=== PATIENT | male | born 1995 | race Caucasian/White ===

== ENCOUNTER 2017-12-30 16:32 | Emergency (ER) | payer MEDICAID ==
[~2017-12-30] VITALS: Ht 177.8 cm; Wt 72.6 kg
[2017-12-30] MEDS ORDERED: ZYPREXA7.5 MG ORAL (16:35)
[2017-12-30] MEDS ORDERED: SEROQUEL50 MG ORAL (16:35)
[2017-12-30] MEDS ORDERED: LITHIUM8 MEQ/5 M1 PO (16:35)
[2017-12-30] MEDS ORDERED: LEXAPRO10 MG ORAL (16:35)
--- NOTE | 2017-12-30 16:53 | Emergency Room Report ---
History of Present Illness General Chief Complaint: General Complaint Source: EMS Present Illness HPI 22yo male patient presents to ER complaining of hearing voices. Patient was previously seen and discharged by [facility] earlier today with rx for Zyprexa. Patient states voices are telling him they will hurt him. Patient denies thoughts of hurting himself or anyone else. Reports voices are stuffing "sticky buns" in his body. Patient is a poor historian. Patient denies acute pain, denies SOB, chest pain. Allergies: Uncoded Allergies: SULFA (Allergy, Unknown, 12/30/17) Patient History Past Medical History: see triage record Reviewed Nursing Documentation: PMH: Agreed, PSxH: Agreed Nursing Documentation-PMH History Of Psychiatric Problem: Yes Review of Systems All Other Systems: negative except mentioned in HPI Physical Exam Vital Signs Date Time Temp Pulse Resp B/P (MAP) Pulse Ox O2 Delivery O2 Flow Rate FiO2 12/30/17 16:15 98.2 98 18 113/73 98 Room Air 98.2 Sp02 EP Interpretation: reviewed, normal General Appearance: well appearing, no apparent distress, alert, GCS 15, non- toxic Head: normocephalic, atraumatic Eyes: bilateral eye normal inspection, bilateral eye PERRL, bilateral eye EOMI ENT: hearing grossly normal, normal pharynx, normal voice, TMs + canals normal , uvula midline, moist mucus membranes Neck: normal inspection, full range of motion, no bony tend Respiratory: normal inspection, lungs clear, normal breath sounds, no rhonchi, no accessory muscle use, no wheezing, speaking full sentences Cardiovascular #1: regular rate, rhythm, no gallop, no murmur, no rub Gastrointestinal: normal bowel sounds, non tender, soft, non-distended, no guarding, no rebound Genitourinary: no CVA tenderness Musculoskeletal: back normal, digits/nails normal, gait/station normal, normal range of motion, no calf tenderness Neurologic: alert, oriented x3, responsive, motor strength/tone normal, normal gait Psychiatric: other Skin: normal color, no rash, warm/dry Lymphatic: no adenopathy Medical Decision Making PA Attestation Dr. Crum is my supervising Physician whom patient management has been discussed with. Diagnostic Impression: Primary Impression: Auditory hallucinations ER Course Pt. presents to the ED c/o auditory hallucinations. Ddx considered but are not limited to anxiety, depression, schizophrenia. Denies suicidal and homicidal ideation. Do not believe patient is a danger to himself. Vital signs: are WNL, pt. is afebrile PE normal. Ordered medication for patient. Patient denies using medication prescribed to him at [facility] earlier today. ED COURSE: Following administration of medication, patient states they are feeling better, less anxious. Patient laughing and smiling in bed. Patient requesting sandwich and juice prior to discharge; patient provided with food. DISCHARGE: At this time pt is stable for d/c to home. Patient is resting comfortably, in no acute distress, nontoxic appearing, talking without difficulty. Patient instructed to take medications as instructed as prescribed from previous ER. Care plan and follow-up instructions provided. Patient instructed to follow-up with primary care provider in 3 - 5 days. Patient provided with contact information for mental health urgent care. Patient instructed to followup with mental health provider for further treatment and diagnosis. Patient questions asked and answered. Patient reports understanding and agreement to treatment plan. ER precautions given. Patient instructed to return to ER immediately for any new or worsening of symptoms including but not limited to increasing SOB, persistent fever. Last Vital Signs Date Time Temp Pulse Resp B/P (MAP) Pulse Ox O2 Delivery O2 Flow Rate FiO2 12/30/17 16:15 98.2 98 18 113/73 98 Room Air 98.2 Disposition: HOME, SELF-CARE Condition: Stable Patient Instructions: Schizophrenia Additional Instructions: Followup with primary care provider in 3 -5 days. Followup with psychiatrist. Provided with contact information for mental health urgent care. Take Zyprexa as directed from pervious ER. Patient questions asked and answered. ER precautions given, patient instructed to return to ER immediately for any new or worsening of symptoms. Jhony Rey Dec 30, 2017 16:53
[2017-12-30 18:22] VITALS: BP 145/61
== END 2017-12-30 19:20 | disposition home or self-care (01) ==
LOC: EDBD 16:32 → EMR 17:00
DX: R44.0 Auditory hallucinations (principal); Z88.2 Allergy status to sulfonamides
CPT/HCPCS: 99285

== ENCOUNTER 2017-12-30 20:29 | Emergency (ER) | payer MEDICAID ==
[~2017-12-30] VITALS: Ht 177.8 cm; Wt 72.6 kg
[~2017-12-30 20:29] MED LIST: LEXAPRO10 MG ORAL; LITHIUM8 MEQ/5 M1 PO; SEROQUEL50 MG ORAL; ZYPREXA7.5 MG ORAL
--- NOTE | 2017-12-30 21:34 | Emergency Room Report ---
History of Present Illness General Chief Complaint: Behavioral Complaint Source: Patient Present Illness HPI Is a 22-year-old male who has a history of schizophrenia. Not taking his psychiatric medication. Also history of methamphetamine abuse. He was here earlier complaining of chest pain. He was laughing and playful and was discharged. He was also discharged recently from another hospital with a prescription for Zyprexa. When he left ear he called 911 and said that his hearing voices. Police brought him back in and place him on a 150 because his hearing voices. Is no change from his previous episodes. He said the voice is causing and sharp pain in his body. No suicidal thoughts or homicidal thought. He does have a history of previous suicidal attempt. Recent psychiatric admission. Patient does not remember where or when. Allergies: Uncoded Allergies: SULFA (Allergy, Unknown, 12/30/17) Patient History Past Medical History: see triage record, old chart reviewed Past Surgical History: other Family History: none Social History: tobacco use, drug use Immunizations: other Reviewed Nursing Documentation: PMH: Agreed, PSxH: Agreed Nursing Documentation-PMH History Of Psychiatric Problem: Yes - schizophrenia Review of Systems ENT: Denies: sore throat Cardiovascular: Denies: chest pain, palpitations Gastrointestinal/Abdominal: Denies: nausea, vomiting, diarrhea Musculoskeletal: Denies: back problems Skin: Denies: rash Psychiatric: Reports: hallucinations Neurological: Denies: MC, seizures All Other Systems: negative except mentioned in HPI Physical Exam Vital Signs Date Time Temp Pulse Resp B/P (MAP) Pulse Ox O2 Delivery O2 Flow Rate FiO2 12/30/17 20:30 97.9 94 20 134/70 97 Room Air 97.9 vitals normal Sp02 EP Interpretation: reviewed, normal General Appearance: alert/responsive, no apparent distress, non-toxic Head: normocephalic, atraumatic Eyes: PERRL, EOMI ENT: oropharynx normal Neck: supple/symm/no masses Respiratory: effort normal, no rhonchi, no wheezing Cardiovascular: no murmur, gallop, rub Gastrointestinal: non-tender, no mass, non-distended, no rebound/guarding, normal bowel sounds Musculoskeletal: gait & station normal Neurologic: oriented x3, sensory intact, motor strength/tone normal Skin: no rash, normal palpation Medical Decision Making Diagnostic Impression: Primary Impression: Acute psychosis Additional Impression: Methamphetamine abuse ER Course Patient with psychosis. He is calm. Since he has a 5150 hold by police, and psychiatric workup and get psychiatric evaluation. He is medically clear from my standpoint. Lab Results Impression labs normal Last Vital Signs Date Time Temp Pulse Resp B/P (MAP) Pulse Ox O2 Delivery O2 Flow Rate FiO2 12/30/17 20:30 97.9 94 20 134/70 97 Room Air 97.9 Status: unchanged Disposition: XFER TO PSYCH HOSP/UNIT Condition: Stable SANDIE DAVIS M.D. Dec 30, 2017 21:34
[2017-12-30 22:02] LABS: BASOPHILS % (AUTO) 1.5 % (0.0-2.0); HEMATOCRIT 38.8 % (42.0-52.0); HEMOGLOBIN 13.3 G/DL (14.2-18.0); LYMPHOCYTES % (AUTO) 42.6 % (20.0-45.0); MEAN CORPUSCULAR VOLUME 90 FL (80-99); MONOCYTES % (AUTO) 10.5 % (1.0-10.0); NEUTROPHILS % (AUTO) 39.4 % (45.0-75.0); PLATELET COUNT 241 K/UL (150-450); RED BLOOD COUNT 4.32 M/UL (4.70-6.10); RED CELL DISTRIBUTION WIDTH 12.2 % (11.6-14.8); WHITE BLOOD COUNT 8.5 K/UL (4.8-10.8)
[2017-12-30 22:05] LABS: ALANINE AMINOTRANSFERASE 112 U/L (12-78); ALBUMIN 3.4 G/DL (3.4-5.0); ALBUMIN/GLOBULIN RATIO 0.9 (1.0-2.7); ALKALINE PHOSPHATASE 111 U/L (46-116); ANION GAP 7 mmol/L (5-15); ASPARTATE AMINO TRANSFERASE 42 U/L (15-37); BILIRUBIN,TOTAL 0.8 MG/DL (0.2-1.0); BLOOD UREA NITROGEN 23 mg/dL (7-18); CALCIUM 8.8 MG/DL (8.5-10.1); CARBON DIOXIDE 29 MMOL/L (21-32); CHLORIDE 101 MMOL/L (98-107); CREATININE 0.8 MG/DL (0.55-1.30); POTASSIUM 3.7 MMOL/L (3.5-5.1); SODIUM 137 MMOL/L (136-145)
[2017-12-30 23:16] VITALS: BP 119/82
[2017-12-31 02:43] VITALS: BP 121/57
[2017-12-31 06:46] VITALS: BP 104/64
[2017-12-31 07:55] VITALS: BP 108/65
[2017-12-31 10:39] VITALS: BP 112/68
--- NOTE | 2017-12-31 17:30 | Consultation ---
DATE OF CONSULTATION: 12/31/2017 CONSULTING PHYSICIAN: Antwan Colin M.D. HISTORY OF PRESENT ILLNESS: The patient was seen in the ER. This is a 22-year-old male with a history of schizophrenia, chronic paranoid type, who came to the hospital complaining of hearing voices. His system was positive for methamphetamine. The patient was discharged after he was being inappropriately laughing and playful in the emergency room. He was discharged recently from another hospital, I believe [place] or [place], with a prescription for Zyprexa. He called 911. The police came, placed him on a 5150 for danger to self. During the evaluation, he stated that he has been hearing voices telling him bad things and he wants to hurt himself. His affect was not consistent with his presentation, and he was unable to elaborate on the voices that he was hearing. He was adamant on speaking about auditory hallucination to other staff. He did not express any suicidal ideation nor homicidal ideation. When I was asking him a question in regards to his mental condition or recent hospitalization, he believes that it was an irrelevant and in the middle of the evaluation, he stated that he would like to be discharged. He was not open to be on any medication nor psychiatric referral. PAST PSYCHIATRIC HISTORY: He stated that he had other psychiatric hospitalization, however, he would not open up in regards to that. PAST MEDICAL HISTORY: Significant for schizophrenia, chronic paranoid type. Otherwise, he is healthy. ALLERGIES: Sulfa. SUBSTANCE ABUSE HISTORY: Positive for history of drug use including methamphetamine and marijuana. However, he remained uncooperative. MENTAL STATUS EXAMINATION: The patient was well-developed and well-nourished male, stated age. Mood was neutral. Affect was full range, congruent with mood. Thought process was linear. Thought content, no suicidal or homicidal ideations were noted. No auditory or visual hallucinations. No persecutory delusions. Cognition was intact. Insight and judgment was fair. ASSESSMENT: [place] I Schizophrenia, chronic paranoid type by history, and amphetamine abuse. [place] II Deferred. [place] III As above. [place] IV Low. [place] V Global assessment of functioning is 50. PLAN: 1. The patient was discharged. We will give the psych referral even though the patient is reluctant or adamant against going through outpatient program. 2. We will discontinue the 5150. The patient is not an imminent danger to self or others and does not meet the criteria for inpatient level of care. Antwan Colin M.D. DR: BALWINDER JOB#: [id number] CC:
== END 2017-12-31 10:43 | disposition home or self-care (01) ==
LOC: EMR 21:20
DX: F20.0 Paranoid schizophrenia (principal); F15.10 Other stimulant abuse, uncomplicated; Z88.2 Allergy status to sulfonamides
CPT/HCPCS: 36415; 80053; 80307; 80329; 85025; 99285

== ENCOUNTER 2018-01-21 15:01 | Emergency (ER) | payer MEDICAID ==
[~2018-01-21] VITALS: Ht 177.8 cm; Wt 81.6 kg
--- NOTE | 2018-01-21 16:19 | Emergency Room Report ---
History of Present Illness General Chief Complaint: Behavioral Complaint Source: EMS Present Illness HPI 22-year-old male presents to the emergency department complaining of auditory hallucinations. Patient states that he has had these hallucinations in the past. Patient reports that he is hearing voices that are telling him to do disrespectful things and are constantly "poking him " patient also reports history of drug use he describes taking "white" without getting further detail he shows interest in several living. Patient reports psychiatric history and is supposed to be taking Seroquel and also Zyprexa however he reports noncompliance of medications. He denies SI or HI. Denies open wounds, pain, chest pain, shortness of breath, or difficulty breathing. Allergies: Coded Allergies: SULFA (SULFONAMIDE ANTIBIOTICS) (Unverified Allergy, Unknown, 01/21/18) Uncoded Allergies: SULFA (Allergy, Unknown, 12/30/17) Patient History Past Medical History: psych hx - paranoid schizophrenia Past Surgical History: none Pertinent Family History: none Reviewed Nursing Documentation: PMH: Agreed, PSxH: Agreed Nursing Documentation-PMH Past Medical History: No History, Except For History Of Psychiatric Problem: Yes Review of Systems All Other Systems: negative except mentioned in HPI Physical Exam Vital Signs Date Time Temp Pulse Resp B/P (MAP) Pulse Ox O2 Delivery O2 Flow Rate FiO2 01/21/18 14:56 98.1 100 18 150/73 97 Room Air 98.1 Sp02 EP Interpretation: reviewed, normal General Appearance: no apparent distress, alert, GCS 15, non-toxic Head: normocephalic, atraumatic Eyes: bilateral eye normal inspection, bilateral eye PERRL ENT: hearing grossly normal, normal voice Neck: full range of motion Respiratory: chest non-tender, lungs clear, normal breath sounds, speaking full sentences Cardiovascular #1: regular rate, rhythm Gastrointestinal: normal bowel sounds, non tender, soft Musculoskeletal: back normal, gait/station normal, normal range of motion, non- tender Neurologic: alert, oriented x3, responsive, motor strength/tone normal, sensory intact, speech normal, grossly normal Psychiatric: other - Pt. has auditory halllucinations with some paranoia. hyperactive/ anxious affect. cooperative, linear though process. Skin: normal color, no rash, warm/dry, well hydrated Medical Decision Making PA Attestation Dr. Johnson is my supervising Physician whom patient management has been discussed with. Diagnostic Impression: Primary Impression: Behavioral disorder ER Course 22-year-old male presents to the emergency department complaining of auditory hallucinations. Patient states that he has had these hallucinations in the past. Patient reports that he is hearing voices that are telling him to do disrespectful things and are constantly "poking him " patient also reports history of drug use he describes taking "white" without getting further detail he shows interest in several living. Patient reports psychiatric history and is supposed to be taking Seroquel and also Zyprexa however he reports noncompliance of medications. He denies SI or HI. Denies open wounds, pain, chest pain, shortness of breath, or difficulty breathing. Pt is hyperactive with restless affect. - Cooperative and follows directions. Ddx considered but are not limited to OD, SI/HI, psychosis, UTI, intoxication Vital signs: are WNL, pt. is afebrile H&PE are most consistent with behavioral/mental health issue ORDERS: -CBC, CMP: mildly elevated LFT's, potassium 3.2, elevated BUN. -UA: negative for infection see results attached. -UDS: Positive for Amphetamines -Serum ETOH: 3 -Salicylates and Acetaminophen - no acute intoxication. ED INTERVENTIONS: - 20meq KCl PO - 2mg Risperdal -consult with Dr. Colin, recommended risperdal 2 mg DISPOSITION: medically cleared, will await response to medication and psych eval. Labs Test 01/21/18 16:30 01/21/18 16:38 Urine Color Yellow Urine Appearance Clear Urine pH 6.5 (4.5-8.0) Urine Specific [place] 1.015 (1.005-1.035) Urine Protein 1+ (NEGATIVE) Urine Glucose (UA) Negative (NEGATIVE) Urine Ketones 1+ (NEGATIVE) Urine Occult Blood Negative (NEGATIVE) Urine Nitrite Negative (NEGATIVE) Urine Bilirubin Negative (NEGATIVE) Urine Urobilinogen Normal MG/DL (0.0-1.0) Urine Leukocyte Esterase 1+ (NEGATIVE) Urine RBC 0-2 /HPF (0 - 0) Urine WBC 2-4 /HPF (0 - 0) Urine Squamous Epithelial Cells None /LPF (NONE/OCC) Urine Bacteria Few /HPF (NONE) Urine Opiates Screen Negative (NEGATIVE) Urine Barbiturates Screen Negative (NEGATIVE) Phencyclidine (PCP) Screen Negative (NEGATIVE) Urine Amphetamines Screen Positive (NEGATIVE) Urine Benzodiazepines Screen Negative (NEGATIVE) Urine Cocaine Screen Negative (NEGATIVE) Urine Marijuana (THC) Screen Negative (NEGATIVE) White Blood Count 10.7 K/UL (4.8-10.8) Red Blood Count 4.53 M/UL (4.70-6.10) Hemoglobin 14.4 G/DL (14.2-18.0) Hematocrit 40.2 % (42.0-52.0) Mean Corpuscular Volume 89 FL (80-99) Mean Corpuscular Hemoglobin 31.8 PG (27.0-31.0) Mean Corpuscular Hemoglobin Concent 35.9 G/DL (32.0-36.0) Red Cell Distribution Width 11.8 % (11.6-14.8) Platelet Count 284 K/UL (150-450) Mean Platelet Volume 7.8 FL (6.5-10.1) Neutrophils (%) (Auto) 56.4 % (45.0-75.0) Lymphocytes (%) (Auto) 29.3 % (20.0-45.0) Monocytes (%) (Auto) 10.6 % (1.0-10.0) Eosinophils (%) (Auto) 1.5 % (0.0-3.0) Basophils (%) (Auto) 2.2 % (0.0-2.0) Sodium Level 137 MMOL/L (136-145) Potassium Level 3.2 MMOL/L (3.5-5.1) Chloride Level 99 MMOL/L (98-107) Carbon Dioxide Level 28 MMOL/L (21-32) Anion Gap 10 mmol/L (5-15) Blood Urea Nitrogen 28 mg/dL (7-18) Creatinine 0.9 MG/DL (0.55-1.30) Estimat Glomerular Filtration Rate > 60 mL/min (>60) Glucose Level 78 MG/DL (74-106) Calcium Level 9.6 MG/DL (8.5-10.1) Total Bilirubin 1.5 MG/DL (0.2-1.0) Direct Bilirubin 0.2 MG/DL (0.0-0.3) Aspartate Amino Transf (AST/SGOT) 76 U/L (15-37) Alanine Aminotransferase (ALT/SGPT) 96 U/L (12-78) Alkaline Phosphatase 81 U/L (46-116) Total Protein 8.6 G/DL (6.4-8.2) Albumin 4.3 G/DL (3.4-5.0) Globulin 4.3 g/dL Albumin/Globulin Ratio 1.0 (1.0-2.7) Salicylates Level 0.3 ug/mL (2.8-20) Acetaminophen Level < 2 MCG/ML (10-30) Serum Alcohol 3 mg/dL Last Vital Signs Date Time Temp Pulse Resp B/P (MAP) Pulse Ox O2 Delivery O2 Flow Rate FiO2 01/21/18 14:56 98.1 100 18 150/73 97 Room Air 98.1 Signed Out To: Dr. Crum Physician Consult: Dr. Colin ( psych) Reina Phipps Jan 21, 2018 16:18
[2018-01-21 17:01] LABS: APPEARANCE,URINE CLEAR; BILIRUBIN, URINE NEGATIVE (NEGATIVE); GLUCOSE, URINE (UA) NEGATIVE (NEGATIVE); KETONES,URINE 1+ (NEGATIVE); LEUKOCYTE ESTERASE ,URINE 1+ (NEGATIVE); NITRITE,URINE NEGATIVE (NEGATIVE); PH,URINE 6.5 (4.5-8.0); PROTEIN,URINE 1+ (NEGATIVE); UROBILINOGEN,URINE NORMAL MG/DL (0.0-1.0)
[2018-01-21 17:13] LABS: COLOR,URINE YELLOW
[2018-01-21 17:16] LABS: BASOPHILS % (AUTO) 2.2 % (0.0-2.0); EOSINOPHILS % (AUTO) 1.5 % (0.0-3.0); HEMATOCRIT 40.2 % (42.0-52.0); HEMOGLOBIN 14.4 G/DL (14.2-18.0); LYMPHOCYTES % (AUTO) 29.3 % (20.0-45.0); MEAN CORPUSCULAR VOLUME 89 FL (80-99); MONOCYTES % (AUTO) 10.6 % (1.0-10.0); NEUTROPHILS % (AUTO) 56.4 % (45.0-75.0); PLATELET COUNT 284 K/UL (150-450); RED BLOOD COUNT 4.53 M/UL (4.70-6.10); RED CELL DISTRIBUTION WIDTH 11.8 % (11.6-14.8); WHITE BLOOD COUNT 10.7 K/UL (4.8-10.8)
[2018-01-21 17:19] LABS: ANION GAP 10 mmol/L (5-15); BLOOD UREA NITROGEN 28 mg/dL (7-18); CALCIUM 9.6 MG/DL (8.5-10.1); CARBON DIOXIDE 28 MMOL/L (21-32); CHLORIDE 99 MMOL/L (98-107); CREATININE 0.9 MG/DL (0.55-1.30); POTASSIUM 3.2 MMOL/L (3.5-5.1); SODIUM 137 MMOL/L (136-145)
[2018-01-21 17:31] LABS: ALANINE AMINOTRANSFERASE 96 U/L (12-78); ALBUMIN 4.3 G/DL (3.4-5.0); ALKALINE PHOSPHATASE 81 U/L (46-116); ASPARTATE AMINO TRANSFERASE 76 U/L (15-37); BILIRUBIN,TOTAL 1.5 MG/DL (0.2-1.0)
[2018-01-21 17:34] LABS: BILIRUBIN,DIRECT 0.2 MG/DL (0.0-0.3)
[2018-01-21 18:36] VITALS: BP 150/73
[2018-01-21 22:32] VITALS: BP 121/72
[2018-01-22 06:22] VITALS: BP 113/65
[2018-01-22 11:05] VITALS: BP 113/65
--- NOTE | 2018-01-22 23:01 | Consultation ---
DATE OF CONSULTATION: 01/22/2018 HISTORY OF PRESENT ILLNESS: The patient is a 22-year-old male with unknown psychiatric history who was admitted to the emergency room at [facility] with chief complaint of having suicidal thoughts. His toxicology came back positive for methamphetamine. During evaluation, he was somewhat uncooperative. He perseverated. He needs to go to a psychiatric unit as he has thought of cutting himself. He was seen at a psychiatric hospital and was given psychotropic medication; however, he has been noncompliant with medication and has poor insight and judgment into his drug use. He is not motivated to self and he states that he does not have any problem with meth use. He also stated that he has no money left for the and he is homeless. The patient is denying any auditory or visual hallucinations. No delusions. PAST PSYCHIATRIC HISTORY: He has several psychiatric hospitalizations with similar situation, noncompliance with medication. He does not give me list of his medications. PAST MEDICAL HISTORY: None. ALLERGIES: No known drug allergies. SUBSTANCE ABUSE HISTORY: Significant for methamphetamine and marijuana. MENTAL STATUS EXAMINATION: The patient is alert and oriented times self, place, and situation he is in. Mood is neutral. Affect is constricted, congruent with mood. Thought process is linear and goal oriented. Thought content, he has suicidal ideation, but he does not elaborate nor is he tell me what his plan would be. Insight and judgment is poor. ASSESSMENT: AXIS I Methamphetamine abuse. Psychotic disorder by history. AXIS II Deferred. AXIS III As above. AXIS IV Moderate. AXIS V Global assessment of functioning is 50. PLAN: 1. The patient will be discharged. He will be provided housing referral as he stated that he will not be suicidal as we provide him housing. 2. The patient is not an imminent danger to self or others. 3. He refused prescription medications for antipsychotics. 4. The case was discussed with the ER doctor and the staff. Antwan Colin M.D. DR: TRUDY JOB#: [id number] CC:
== END 2018-01-22 11:09 | disposition home or self-care (01) ==
LOC: EDBD 15:01 → EMR 17:30
DX: F91.9 Conduct disorder, unspecified (principal); Z88.2 Allergy status to sulfonamides; Z91.19 Patient's noncompliance with other medical treatment and regimen; F15.10 Other stimulant abuse, uncomplicated
CPT/HCPCS: 36415; 80053; 80307; 80329; 81003; 82248; 85025; 99284; J8499

== ENCOUNTER 2018-09-08 17:36 | Emergency (ER) | payer MEDICAID ==
[~2018-09-08] VITALS: Ht 177.8 cm; Wt 68.0 kg
[2018-09-08 17:45] VITALS: BP 147/91
--- NOTE | 2018-09-08 17:46 | Emergency Room Report ---
History of Present Illness General Chief Complaint: Behavioral Complaint Present Illness HPI 23-year-old male patient presents the ER brought in by ambulance complaining of hearing voices. Patient reports a history of schizophrenia, states that is currently taking Lexapro, hydroxyzine, Seroquel. Denies drinking or drug use. Denies suicidal or homicidal ideation. Reports he wants "the voices to go away ". Reports he would like to be sent to [facility] urgent care. Denies acute symptoms at this time. Denies fever, chest pain, shortness of breath, abdominal pain. States does not need refill of medication. (Jhony Rey P.AAcacia) Allergies: Coded Allergies: SULFA (SULFONAMIDE ANTIBIOTICS) (Unverified Allergy, Unknown, 01/21/18) UNABLE TO ASSESS (Unverified , 09/08/18) Uncoded Allergies: SULFA (Allergy, Unknown, 12/30/17) Patient History Past Medical History: see triage record Reviewed Nursing Documentation: PMH: Agreed; PSxH: Agreed (Jhony Rey) Nursing Documentation-PMH Past Medical History: No History, Except For History Of Psychiatric Problem: Yes (Jhony Rey P.AAcacia) Review of Systems All Other Systems: negative except mentioned in HPI (Jhony Rey P.AAcacia) Physical Exam Vital Signs Date Time Temp Pulse Resp B/P (MAP) Pulse Ox O2 Delivery O2 Flow Rate FiO2 09/08/18 17:30 98.4 116 20 147/91 98 Room Air Sp02 EP Interpretation: reviewed, normal General Appearance: well appearing, no apparent distress, alert, GCS 15, non- toxic Head: normocephalic, atraumatic Eyes: bilateral eye normal inspection, bilateral eye PERRL ENT: hearing grossly normal, normal pharynx, no angioedema, normal voice, uvula midline, moist mucus membranes Neck: full range of motion Respiratory: lungs clear, normal breath sounds, no rhonchi, no respiratory distress, no accessory muscle use, no wheezing, speaking full sentences Cardiovascular #1: regular rate, rhythm, no edema Musculoskeletal: back normal, digits/nails normal, gait/station normal, normal range of motion, non-tender Neurologic: alert, oriented x3, responsive, motor strength/tone normal, sensory intact Psychiatric: mood/affect normal, no suicidal/homicidal ideation Skin: no rash (Jhony Rey) Medical Decision Making PA Attestation Dr. Stanton is my supervising Physician whom patient management has been discussed with. (Jhony Rey) Diagnostic Impression: Primary Impression: Hearing voices Additional Impression: Hx of schizophrenia ER Course Pt. presents to the ED c/o hearing voices. Ddx considered but are not limited to anxiety, depression, drug use, alcohol use , behavioral disorder. Vital signs: are WNL, pt. is afebrile. pulse and blood pressure slightly elevated, patient denies chest pain or shortness of breath, does not require further workup for this time. Will continue to monitor. Ordered labs, urine drug screen, serum alcohol. ER COURSE: physical exam benign. patient previously seen in the ER for similar symptoms. patient requesting to be sent to [facility]. Patient denies suicidal or homicidal ideation. Patient is injured himself or others at this time. Does not believe patient requires workup and labs at this time, denies acute physical complaints. Had scada technician contact [facility], states she was told by them that they "did not want a report of patient" and to "send him over". Provide patient with transportation voucher to urgent care. ER precautions given. Patient stable for discharge to home. discuss patient care with Dr. Stanton, agrees with assessment and treatment plan. DISCHARGE: At this time pt is stable for d/c to home. Patient is resting comfortably, in no acute distress, nontoxic appearing, talking without difficulty. Patient to take medications as instructed Will provide with patient care instructions and any necessary prescriptions. Care plan and follow-up instructions provided. Patient instructed to follow-up with primary care provider in 3 - 5 days. Patient questions asked and answered. Patient reports understanding and agreement to treatment plan. ER precautions given. Patient instructed to return to ER immediately for any new or worsening of symptoms including but not limited to increasing SOB, persistent fever. - Please note that this Emergency Department Report was dictated using [employer] pick up man technology software, occasionally this can lead to erroneous entry secondary to interpretation by the dictation equipment. (Jhony Rey) ER Course I evaluated Mr. Mancuso. He has auditory hallucinations. He does not have suicidal or homicidal ideation. He is appropriate for discharge. He did request a taxi voucher [facility]. We provided transportation and taxi outpatient mental health facility. Currently he is not a harm to himself or others. appropriate for discharge. (Dilcia Stanton MD) Last Vital Signs Date Time Temp Pulse Resp B/P (MAP) Pulse Ox O2 Delivery O2 Flow Rate FiO2 09/08/18 17:30 98.4 116 20 147/91 98 Room Air (Jhony Rey) Disposition: HOME, SELF-CARE Condition: Stable Patient Instructions: Schizophrenia Additional Instructions: Followup with primary care provider in 3 -5 days. follow-up with mental health professional to discuss medication and hearing voices. Take medications as directed. Patient questions asked and answered. ER precautions given, patient instructed to return to ER immediately for any new or worsening of symptoms. Jhony Rye Sep 08, 2018 17:46 Dilcia Stanton MD Sep 08, 2018 22:11
[2018-09-08 18:50] VITALS: BP 138/84
== END 2018-09-08 18:55 | disposition home or self-care (01) ==
LOC: EDBD 17:36 → EMR 17:45
DX: R44.0 Auditory hallucinations (principal); F20.9 Schizophrenia, unspecified; Z88.2 Allergy status to sulfonamides
CPT/HCPCS: 99283

== ENCOUNTER 2018-09-20 02:02 | Emergency (ER) | payer MEDICAID ==
[~2018-09-20] VITALS: Ht 177.8 cm; Wt 68.0 kg
--- NOTE | 2018-09-20 02:14 | Emergency Room Report ---
History of Present Illness General Source: Patient (Alton Johnson MD) Present Illness HPI Patient is a 23-year-old male brought in by EMS after increased hallucinations. Patient was noted to have prior history of psychiatric disease. He reports taking Seroquel as well as Atarax and another medication. The patient reports having prior history of psychiatric disease. He reports hearing voices. (Alton Johnson MD) Allergies: Coded Allergies: SULFA (SULFONAMIDE ANTIBIOTICS) (Unverified Allergy, Unknown, 01/21/18) UNABLE TO ASSESS (Unverified , 09/08/18) Uncoded Allergies: SULFA (Allergy, Unknown, 12/30/17) Patient History Past Medical History: see triage record Reviewed Nursing Documentation: PMH: Agreed; PSxH: Agreed (Alton Johnson MD) Review of Systems All Other Systems: negative except mentioned in HPI (Alton Johnson MD) Physical Exam Sp02 EP Interpretation: reviewed, normal General Appearance: normal inspection, well appearing, no apparent distress, alert, GCS 15 Head: atraumatic ENT: normal ENT inspection, hearing grossly normal, normal voice Neck: normal inspection, full range of motion, supple, no bony tend Respiratory: normal inspection, lungs clear, normal breath sounds, no respiratory distress, no retraction, no wheezing Cardiovascular #1: regular rate, rhythm, no edema Gastrointestinal: normal inspection, normal bowel sounds, non tender, soft, no guarding, no hernia Genitourinary: no CVA tenderness Musculoskeletal: normal inspection, back normal, normal range of motion Neurologic: normal inspection, alert, oriented x3, responsive, 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 Skin: normal inspection, normal color, no rash, other - well healed laceration to left forearm (Alton Johnson MD) Medical Decision Making Diagnostic Impression: Primary Impression: Psychosis Additional Impression: Substance abuse ER Course The patient presented for increased auditory hallucinations. Differential diagnoses include substance abuse, psychosis, bipolar disorder, depression, malingering Because of complexity of patient's case laboratory testing and imaging studies were ordered. The laboratory studies are unremarkable. Patient is medically Seroquel. Urine drug screen was positive for amphetamine.The patient was noted to have multiple well-healed laceration to left upper extremity. Labs Test 09/20/18 02:50 White Blood Count 6.7 K/UL (4.8-10.8) Red Blood Count 5.12 M/UL (4.70-6.10) Hemoglobin 15.0 G/DL (14.2-18.0) Hematocrit 44.1 % (42.0-52.0) Mean Corpuscular Volume 86 FL (80-99) Mean Corpuscular Hemoglobin 29.3 PG (27.0-31.0) Mean Corpuscular Hemoglobin Concent 34.1 G/DL (32.0-36.0) Red Cell Distribution Width 11.5 % (11.6-14.8) Platelet Count 262 K/UL (150-450) Mean Platelet Volume 7.3 FL (6.5-10.1) Neutrophils (%) (Auto) 43.4 % (45.0-75.0) Lymphocytes (%) (Auto) 42.3 % (20.0-45.0) Monocytes (%) (Auto) 8.7 % (1.0-10.0) Eosinophils (%) (Auto) 4.0 % (0.0-3.0) Basophils (%) (Auto) 1.7 % (0.0-2.0) Sodium Level 137 MMOL/L (136-145) Potassium Level 3.9 MMOL/L (3.5-5.1) Chloride Level 100 MMOL/L (98-107) Carbon Dioxide Level 29 MMOL/L (21-32) Anion Gap 8 mmol/L (5-15) Blood Urea Nitrogen 21 mg/dL (7-18) Creatinine 0.9 MG/DL (0.55-1.30) Estimat Glomerular Filtration Rate > 60 mL/min (>60) Glucose Level 86 MG/DL (74-106) Calcium Level 9.9 MG/DL (8.5-10.1) Total Bilirubin 1.8 MG/DL (0.2-1.0) Direct Bilirubin 0.3 MG/DL (0.0-0.3) Aspartate Amino Transf (AST/SGOT) 83 U/L (15-37) Alanine Aminotransferase (ALT/SGPT) 170 U/L (12-78) Alkaline Phosphatase 84 U/L (46-116) Total Protein 9.4 G/DL (6.4-8.2) Albumin 4.1 G/DL (3.4-5.0) Globulin 5.3 g/dL Albumin/Globulin Ratio 0.8 (1.0-2.7) Salicylates Level 1.9 ug/mL (2.8-20) Urine Opiates Screen Negative (NEGATIVE) Acetaminophen Level < 2 MCG/ML (10-30) Urine Barbiturates Screen Negative (NEGATIVE) Phencyclidine (PCP) Screen Negative (NEGATIVE) Urine Amphetamines Screen Positive (NEGATIVE) Urine Benzodiazepines Screen Negative (NEGATIVE) Urine Cocaine Screen Negative (NEGATIVE) Urine Marijuana (THC) Screen Negative (NEGATIVE) Serum Alcohol < 3 mg/dL (Alton Johnsno MD) ER Course patient is medically cleared. patient will be transferred for voluntary psychiatric placement (Savage Crum MD) EKG Diagnostic Results Rate: normal Rhythm: NSR ST Segments: no acute changes ASA given to the pt in ED: No (Savage Crum MD) Rhythm Strip Diag. Results EP Interpretation: yes Rhythm: NSR, no PVC's, no ectopy (Savage Crum MD) Status: unchanged (Alton Johnson MD) Status: improved (Savage Crum MD) Disposition: XFER TO PSYCH HOSP/UNIT Condition: Serious Alton Johnson MD Sep 20, 2018 02:14 Savage Crum MD Sep 20, 2018 09:27
[2018-09-20 02:15] VITALS: BP 134/86
[2018-09-20 03:19] LABS: BASOPHILS % (AUTO) 1.7 % (0.0-2.0); HEMATOCRIT 44.1 % (42.0-52.0); LYMPHOCYTES % (AUTO) 42.3 % (20.0-45.0); MEAN CORPUSCULAR VOLUME 86 FL (80-99); MONOCYTES % (AUTO) 8.7 % (1.0-10.0); NEUTROPHILS % (AUTO) 43.4 % (45.0-75.0); PLATELET COUNT 262 K/UL (150-450); RED BLOOD COUNT 5.12 M/UL (4.70-6.10); RED CELL DISTRIBUTION WIDTH 11.5 % (11.6-14.8); WHITE BLOOD COUNT 6.7 K/UL (4.8-10.8)
[2018-09-20 03:28] LABS: ANION GAP 8 mmol/L (5-15); BLOOD UREA NITROGEN 21 mg/dL (7-18); CALCIUM 9.9 MG/DL (8.5-10.1); CARBON DIOXIDE 29 MMOL/L (21-32); CHLORIDE 100 MMOL/L (98-107); CREATININE 0.9 MG/DL (0.55-1.30); POTASSIUM 3.9 MMOL/L (3.5-5.1); SODIUM 137 MMOL/L (136-145)
[2018-09-20 03:38] LABS: ALANINE AMINOTRANSFERASE 170 U/L (12-78); ALBUMIN 4.1 G/DL (3.4-5.0); ALBUMIN/GLOBULIN RATIO 0.8 (1.0-2.7); ALKALINE PHOSPHATASE 84 U/L (46-116); ASPARTATE AMINO TRANSFERASE 83 U/L (15-37); BILIRUBIN,DIRECT 0.3 MG/DL (0.0-0.3); BILIRUBIN,TOTAL 1.8 MG/DL (0.2-1.0)
[2018-09-20 07:30] VITALS: BP 96/50
[2018-09-20] MEDS ORDERED: LORazepam 1mg tab ORAL ONE (08:15)
[2018-09-20 10:19] VITALS: BP 100/55
[2018-09-20 10:48] VITALS: BP 100/55
--- NOTE | 2018-09-23 16:55 | Cardiology Report ---
APPROVED REPORT EKG Measurement Heart [id number] Sinus rhythm with marked sinus arrhythmia Minimal voltage criteria for LVH, may be normal variant Borderline ECG
== END 2018-09-20 10:54 ==
LOC: EDBD 02:02 → EMR 02:20
DX: F29 Unspecified psychosis not due to a substance or known physiological condition (principal); F19.10 Other psychoactive substance abuse, uncomplicated; Z88.2 Allergy status to sulfonamides
CPT/HCPCS: 36415; 80053; 80307; 80329; 82248; 85025; 93005; 99285

== ENCOUNTER 2019-12-09 01:20 | Emergency (ER) | payer MEDICAID, OTHER ==
[~2019-12-09] VITALS: Ht 180.3 cm; Wt 68.0 kg
[2019-12-09 01:45] VITALS: BP 136/79
--- NOTE | 2019-12-09 01:45 | NUR ---
ED Nurse Note: Pt walked into ED after being DC approx 30 min prior under different name (Geremias Antonio) for c/o auditory hallucinations. Pt requesting to sleep. Pt is aaox4, no respiratory or cardiac distress noted.
--- NOTE | 2019-12-09 02:01 | Emergency Room Report ---
History of Present Illness General Chief Complaint: Behavioral Complaint Source: Patient Present Illness HPI Is a 24-year-old male with history of schizophrenia. He was just here earlier under different name. He came initially complaining of hearing voices and wanting Seroquel. After he slept for couple hours he said he to leave. After leaving for 15 minutes he checked back then under this name. He said he is hearing voices again and want something to eat and drink. He denies suicidal thoughts homicidal thought. He denies any other complaint. Allergies: Coded Allergies: SULFA (SULFONAMIDE ANTIBIOTICS) (Unverified Allergy, Unknown, 01/21/18) UNABLE TO ASSESS (Unverified , 09/08/18) Uncoded Allergies: SULFA (Allergy, Unknown, 12/30/17) Patient History Past Medical History: see triage record, old chart reviewed Past Surgical History: other Family History: none Social History: tobacco use Immunizations: other Reviewed Nursing Documentation: PMH: Agreed; PSxH: Agreed Nursing Documentation-PMH Past Medical History: No History, Except For History Of Psychiatric Problem: Yes - SCHIZ Review of Systems ENT: Denies: sore throat Cardiovascular: Denies: chest pain, palpitations Gastrointestinal/Abdominal: Denies: nausea, vomiting, diarrhea Musculoskeletal: Denies: back problems Skin: Denies: rash Neurological: Denies: MC, seizures All Other Systems: negative except mentioned in HPI Physical Exam Vital Signs Date Time Temp Pulse Resp B/P (MAP) Pulse Ox O2 Delivery O2 Flow Rate FiO2 12/09/19 01:40 98.1 100 12 136/79 (98) 99 Room Air Vitals normal Sp02 EP Interpretation: reviewed, normal General Appearance: alert/responsive, no apparent distress, non-toxic Head: normocephalic, atraumatic Eyes: PERRL, EOMI ENT: oropharynx normal Neck: supple/symm/no masses Respiratory: effort normal, no rhonchi, no wheezing Cardiovascular: no murmur, gallop, rub Gastrointestinal: non-tender, no mass, non-distended, no rebound/guarding, normal bowel sounds Musculoskeletal: gait & station normal Neurologic: oriented x3, sensory intact, motor strength/tone normal Skin: no rash, normal palpation Medical Decision Making Diagnostic Impression: Primary Impression: Behavioral disorder Additional Impression: Psychosis Qualified Codes: F23 - Brief psychotic disorder ER Course Patient presents with psychosis. No criteria for 5150. Patient was here only for about 15 to 20 minutes. After he ate and drink, he said he felt better and wanted to leave again. Last Vital Signs Date Time Temp Pulse Resp B/P (MAP) Pulse Ox O2 Delivery O2 Flow Rate FiO2 12/09/19 01:40 98.1 100 12 136/79 (98) 99 Room Air Status: improved Disposition: HOME, SELF-CARE Condition: Stable [facility]errals: [facility]ERR[facility] (PCP) Patient Instructions: Self-Destructive Behavior Additional Instructions: Follow-up with your doctor in mental health within a week. Return if worse. Mike Aaron MD Dec 09, 2019 02:01
[2019-12-09 02:20] VITALS: BP 135/70
--- NOTE | 2019-12-09 02:20 | NUR ---
ER DISCHARGE NOTE: Pt walked out of ER room and requested to leave. Pt is cleared to be DC per ERMD, VSS, aaox4. Pt given DC instructions and verbalized understanding. Pt refused any resources. Pt ID band removed. Pt able to ambulate with steady gait. Pt took all belongings.
== END 2019-12-09 02:20 | disposition home or self-care (01) ==
LOC: EMR 01:50
DX: F23 Brief psychotic disorder (principal); F91.9 Conduct disorder, unspecified; Z88.2 Allergy status to sulfonamides
CPT/HCPCS: 99282

== ENCOUNTER 2020-01-13 12:29 | Emergency (ER) | payer OTHER ==
[~2020-01-13] VITALS: Ht 177.8 cm; Wt 65.8 kg
[2020-01-13 12:30] VITALS: BP 145/90
--- NOTE | 2020-01-13 12:35 | NUR ---
ED Nurse Note: PT brought in by ambulance from the street for C/O hearing voices and Suicidal ideation with plan of cutting him self. PT is currently calm. All belongings placed to locker 2. PT is being monitored closely.
--- NOTE | 2020-01-13 12:40 | NUR ---
ED Nurse Note: PT admits to use meth. unknown when was the last time used.
--- NOTE | 2020-01-13 12:49 | Emergency Room Report ---
History of Present Illness General Chief Complaint: Behavioral Complaint Source: Patient Present Illness HPI 24-year-old male with history of schizophrenia currently not controlled [facility] due to using methamphetamine and endorsing suicidal ideation upon arrival. Patient denies any homicidal ideation. Denies having any weapon. Reports that he last used methamphetamine last night. Patient supposed to be on Seroquel however does not recall the last time that he took Seroquel. Patient was seen [facility] December 09 and requested a refill of Seroquel. Patient does not have established psychiatrist. Lives [address] the [address]. Multiple cuts on the forearms noted that appear to be old and healing. Heart rate. Denies other drug use. Patient to be reassessed after fluid administration and blood work. Also Seroquel was given. At this time patient is not a good historian. Allergies: Coded Allergies: SULFA (SULFONAMIDE ANTIBIOTICS) (Unverified Allergy, Unknown, 01/21/18) UNABLE TO ASSESS (Unverified , 09/08/18) Uncoded Allergies: SULFA (Allergy, Unknown, 12/30/17) Patient History Past Medical History: see triage record Past Surgical History: unable to obtain Family History: unable to obtain Social History: drug use - Methamphetamine Immunizations: UTD Reviewed Nursing Documentation: PMH: Agreed; PSxH: Agreed Nursing Documentation-PMH Past Medical History: No History, Except For History Of Psychiatric Problem: Yes Review of Systems All Other Systems: negative except mentioned in HPI Physical Exam Vital Signs Date Time Temp Pulse Resp B/P (MAP) Pulse Ox O2 Delivery O2 Flow Rate FiO2 01/13/20 12:19 98.1 128 20 140/113 (122) 98 Room Air Sp02 EP Interpretation: reviewed, abnormal - Tachycardic General Appearance: GCS 15, non-toxic Head: normocephalic, atraumatic Eyes: normal eye exam, PERRL, EOMI ENT: normal ENT inspection Neck: supple/symm/no masses, no meningismus Respiratory: effort normal, no rhonchi, no wheezing, no retractions Cardiovascular: normal inspection, regular rate, rhythm, no murmur, gallop, rub , no edema Cardiovascular #2: 2+ radial (R), 2+ radial (L) Gastrointestinal: non-tender, no mass, non-distended, no rebound/guarding, normal bowel sounds Musculoskeletal: gait & station normal Neurologic: oriented x3 Psychiatric: anxious Skin: no rash Lymphatic: normal inspection, normal cervical nodes Medical Decision Making PA Attestation Diagnosis and treatment plans were reviewed and discussed with my supervising physician Dr. Sierra Diagnostic Impression: Primary Impression: Methamphetamine abuse ER Course 24-year-old male with history of schizophrenia currently not controlled brought [facility] due to using methamphetamine and endorsing suicidal ideation upon arrival. Patient denies any homicidal ideation. Denies having any weapon. Reports that he last used methamphetamine last night. Patient supposed to be on Seroquel however does not recall the last time that he took Seroquel. Patient was seen [facility] December 09 and requested a refill of Seroquel. Patient does not have established psychiatrist. [place] [address]. Multiple cuts on the forearms noted that appear to be old and healing. Heart rate. Denies other drug use. Patient to be reassessed after fluid administration and blood work. Also Seroquel was given. At this time patient is not a good historian. Ddx considered but are not limited to: generalized anxiety disorder, panic attack, depression with psychotic feature, bipolar disorder, drug overdose Vital signs: are WNL, pt. is afebrile H&PE are most consistent with: Methamphetamine abuse ORDERS: Psychiatric order set, Seroquel ED INTERVENTIONS: NS bolus, Seroquel p.o. DISCHARGE: At this time pt. is stable for d/c to home. Will provide printed patient care instructions, and any necessary prescriptions. Care plan and follow up instructions have been discussed with the patient prior to discharge. Dr. Sierra reevaluated patient after patient was given few liters of NS bolus answer: Patient is nonsuicidal. Patient reports that will follow with psychiatrist. Prescription for Seroquel was given. Patient has no suicidal or homicidal ideations upon discharge. EKG Diagnostic Results Rate: normal Rhythm: NSR ST Segments: no acute changes Other Impression No acute ST changes Last Vital Signs Date Time Temp Pulse Resp B/P (MAP) Pulse Ox O2 Delivery O2 Flow Rate FiO2 01/13/20 12:19 98.1 128 20 140/113 (122) 98 Room Air Disposition: HOME, SELF-CARE Condition: Stable Scripts Quetiapine Fumarate (SEROQUEL) 50 Mg Tablet 50 MG ORAL THREE TIMES A DAY for 10 Days, #30 TAB 0 Refills Prov: Emerson Colin 01/13/20 Patient Instructions: Stimulant Use Disorder-Methamphetamines Additional Instructions: Take medication as directed, follow-up primary care provider, you need to be seen by psychiatrist, if worsening symptoms return to the emergency room Emerson Colin Jan 13, 2020 12:49
[2020-01-13 12:50] LABS: EOSINOPHILS % (AUTO) 1.7 % (0.0-3.0); HEMATOCRIT 42.5 % (42.0-52.0); HEMOGLOBIN 14.6 G/DL (14.2-18.0); LYMPHOCYTES % (AUTO) 29.4 % (20.0-45.0); MEAN CORPUSCULAR VOLUME 86 FL (80-99); MONOCYTES % (AUTO) 8.4 % (1.0-10.0); NEUTROPHILS % (AUTO) 59.5 % (45.0-75.0); PLATELET COUNT 260 K/UL (150-450); RED BLOOD COUNT 4.92 M/UL (4.70-6.10); RED CELL DISTRIBUTION WIDTH 12.3 % (11.6-14.8); WHITE BLOOD COUNT 6.8 K/UL (4.8-10.8)
[2020-01-13 13:01] LABS: APPEARANCE,URINE CLEAR; BILIRUBIN, URINE NEGATIVE (NEGATIVE); COLOR,URINE PALE YELLOW; GLUCOSE, URINE (UA) NEGATIVE (NEGATIVE); KETONES,URINE NEGATIVE (NEGATIVE); LEUKOCYTE ESTERASE ,URINE NEGATIVE (NEGATIVE); NITRITE,URINE NEGATIVE (NEGATIVE); PH,URINE 7 (4.5-8.0); PROTEIN,URINE NEGATIVE (NEGATIVE); UROBILINOGEN,URINE NORMAL MG/DL (0.0-1.0)
--- NOTE | 2020-01-13 13:08 | NUR ---
ED Nurse Note: Report given to Martha James RN. Endorsed plan of care. No SOB or acute distress noted.
[2020-01-13 13:09] LABS: ANION GAP 8 mmol/L (5-15); BLOOD UREA NITROGEN 15 mg/dL (7-18); CALCIUM 9.4 MG/DL (8.5-10.1); CARBON DIOXIDE 29 MMOL/L (21-32); CHLORIDE 102 MMOL/L (98-107); CREATININE 0.9 MG/DL (0.55-1.30); SODIUM 139 MMOL/L (136-145)
[2020-01-13 13:13] LABS: ALANINE AMINOTRANSFERASE 69 U/L (12-78); ALBUMIN/GLOBULIN RATIO 0.9 (1.0-2.7); ALKALINE PHOSPHATASE 101 U/L (46-116); ASPARTATE AMINO TRANSFERASE 30 U/L (15-37); BILIRUBIN,TOTAL 0.3 MG/DL (0.2-1.0)
[2020-01-13] MEDS ORDERED: SEROQUEL50 MG ORAL (13:35)
--- NOTE | 2020-01-13 13:40 | NUR ---
ED Nurse Note: Pt denies SI/HI. Pt says that he was "coming down" from drugs and did not mean what he was saying
--- NOTE | 2020-01-13 13:50 | NUR ---
ER DISCHARGE NOTE: Patient is cleared to be discharged per ERMD, pt is aox4, on room air, with stable vital signs as documented. pt was given dc and prescription instructions, pt was able to verbalize understanding, pt id band and iv site removed without complications. pt is able to ambulate with steady gait. pt took all belongings. Pt states that he is not homeless and he has a home to go to when discharged.
--- NOTE | 2020-01-13 13:55 | NUR ---
ED Nurse Note: After being discharged, pt came back to ER 5 minutes after leaving and said he is homeless. Gave patient resources, but pt refused to sign homeless discharge checklist. Pt sitting in [place] ED.
== END 2020-01-13 13:50 | disposition home or self-care (01) ==
LOC: EDBD 12:29 → EMR 13:40
DX: F15.10 Other stimulant abuse, uncomplicated (principal); R00.0 Tachycardia, unspecified; Z88.2 Allergy status to sulfonamides
CPT/HCPCS: 36415; 80053; 80307; 81003; 84484; 85025; 93005; 96360; G0480; G0481; J7030; Z7502; 99284

== ENCOUNTER 2020-01-13 14:42 | Emergency (ER) | payer OTHER ==
[~2020-01-13] VITALS: Ht 177.8 cm; Wt 68.0 kg
[2020-01-13 14:56] VITALS: BP 142/76
--- NOTE | 2020-01-13 15:08 | Emergency Room Report ---
History of Present Illness General Chief Complaint: Behavioral Complaint Source: Patient Present Illness HPI Patient is a 24-year-old male past medical history of psychiatric disorders including depression and schizophrenia not compliant with his medication he states he supposed to be on Seroquel, Depakote and Lexapro who presents to the ER complaining of auditory hallucinations. Patient states that the hallucinations are telling him that bad things are getting happened to him and are making him feel suicidal. Patient states that he is tried to kill himself by cutting himself in the past and has the same plan today. Patient was seen here earlier today and presented for hallucinations that he stated were secondary to methamphetamine use. When I asked about drug use he denies any drug use or drinking. Reviewing chart from this morning patient did have a positive toxicology screen for methamphetamine use. Patient appears to be malingering. Allergies: Coded Allergies: SULFA (SULFONAMIDE ANTIBIOTICS) (Unverified Allergy, Unknown, 01/21/18) UNABLE TO ASSESS (Unverified , 09/08/18) Uncoded Allergies: SULFA (Allergy, Unknown, 12/30/17) Patient History Social History: Reports: drug use Reviewed Nursing Documentation: PMH: Agreed; PSxH: Agreed Nursing Documentation-PMH Past Medical History: No History, Except For History Of Psychiatric Problem: Yes - schizophrenia Review of Systems All Other Systems: negative except mentioned in HPI Physical Exam Vital Signs Date Time Temp Pulse Resp B/P (MAP) Pulse Ox O2 Delivery O2 Flow Rate FiO2 01/13/20 14:56 98.4 96 20 142/76 (98) 98 Room Air Sp02 EP Interpretation: reviewed, normal General Appearance: no apparent distress, alert, GCS 15, non-toxic, other - Poorly groomed Head: normocephalic, atraumatic Eyes: bilateral eye normal inspection, bilateral eye PERRL ENT: hearing grossly normal, normal pharynx, no angioedema, normal voice Neck: full range of motion, supple/symm/no masses Respiratory: chest non-tender, lungs clear, normal breath sounds, speaking full sentences Cardiovascular #1: regular rate, rhythm, no edema Gastrointestinal: normal bowel sounds, non tender, soft, non-distended, no guarding, no rebound Rectal: deferred Genitourinary: normal inspection, no CVA tenderness Musculoskeletal: back normal, normal range of motion, calf tenderness, gait/ station normal, non-tender Neurologic: alert, motor strength/tone normal, oriented x3, sensory intact, responsive, speech normal Psychiatric: anxious Skin: no rash Medical Decision Making Diagnostic Impression: Primary Impression: Auditory hallucinations Additional Impression: Suicidal ideation ER Course I reviewed the patient's labs from his earlier visit today which were significant for positive methamphetamines otherwise no significant acute findings. 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 PATIENT IS MEDICALLY CLEARED. Patient accepted to [facility] for further psychiatric evaluation and treatment Last Vital Signs Date Time Temp Pulse Resp B/P (MAP) Pulse Ox O2 Delivery O2 Flow Rate FiO2 01/13/20 15:03 96 20 Room Air 01/13/20 14:56 98.4 142/76 (98) 98 Disposition: XFER TO PSYCH HOSP/UNIT Condition: Improved Physician Consult: Nara Hurst M.D. Jan 13, 2020 15:08
--- NOTE | 2020-01-13 15:46 | NUR ---
MARKETING ADMIN NOTE JOSEMANUEL was called to assess pt's needs/concerns. PT was discharged from ED a few hours ago and returned to ED. Pt presents as A&O 4x and flat affect. Pt reports being homeless, receives GR and food stamps, and has hx of multiple psychiatric admissions. Pt was unable to recall his last psychiatric admission. RUDs positive for methamphetamine. Pt admits his current substance abuse. Pt reports SI w/ cutting himself and dx of Anxiety. Pt reports he needs his medication for Anxiety. Pt denies HI. Pt is aware that he needs psychiatric tx. JOSEMANUEL encouraged pt for voluntary psychiatric admission. Pt is willing to admit himself voluntarily but he does not want to take a bus, believes some people are following him to harm him. JOSEMANUEL relayed information to RN. Signed: 01/13/20 at 1555 by OMAR ABERNATHY <Co-Signature Required>
--- NOTE | 2020-01-13 16:52 | NUR ---
[facility] was called w/ no answer. [facility] was called spoke w/ [facility] and documents has been faxed and received @ 1630. [facility] was called spoke w/ [facility] and no beds are available. SO [facility] was called spoke w/ Nicky and documents has been faxed and received @ [phone].
--- NOTE | 2020-01-13 16:55 | NUR ---
ED Nurse Note: sandwiches provided to the patient as ordered by Dr. Keen. patient is tolerating
--- NOTE | 2020-01-13 17:24 | NUR ---
[facility] called ER and stated that they had beds. [facility] has been faxed and received @ [phone]
--- NOTE | 2020-01-13 19:00 | NUR ---
ED Nurse Note: spoke with Mary to call [phone] to give report to Nurse Film Librarian Edil. Receiving Dr. is Dr. Mei for psych. called this number x2, line is busy at the moment.
--- NOTE | 2020-01-13 19:07 | NUR ---
HAND-OFF: Report given to SUKUMAR DOWD.
--- NOTE | 2020-01-13 20:00 | NUR ---
ED Nurse Note: Call from [facility] Addendum: 01/13/20 at 2010 by BEE ED Nurse Note: Call from [facility]; Pt stated that he is voluntarily willing to be admitted to facility. Dr. Tiesha julien MD. Address: [address] [place] [address], [address]. Call back #: Facility awaiting ETS time
[2020-01-13 20:05] VITALS: BP 142/76
--- NOTE | 2020-01-13 20:05 | NUR ---
ER DISCHARGE NOTE: Patient is cleared to be discharged home per ERMD, pt is aox4, on room air, with stable vital signs. pt was given dc and prescription instructions, pt was able to verbalize understanding, pt id band. pt is able to ambulate with steady gait. pt took all belongings. Pt given clothes and food and homeless retirement resources.
== END 2020-01-13 20:05 | disposition home or self-care (01) ==
LOC: EMR 15:28
DX: R44.0 Auditory hallucinations (principal); R45.851 Suicidal ideations; F20.9 Schizophrenia, unspecified; Z88.2 Allergy status to sulfonamides
CPT/HCPCS: 99284

== ENCOUNTER 2020-03-24 09:25 | Emergency (ER) | payer OTHER ==
[~2020-03-24] VITALS: Ht 177.8 cm; Wt 68.0 kg
--- NOTE | 2020-03-24 09:42 | Emergency Room Report ---
History of Present Illness General Chief Complaint: Suicidal Source: Patient Present Illness HPI Patient is a 25-year-old male past medical history of psychiatric disorders including suicidal ideation and schizophrenia and drug abuse last methamphetamine use was earlier today who presents to the ER stating that he is hearing voices and wants to hurt himself. Patient does not have an exact plan. Patient was seen at [facility] on Saturday. Patient is well-known to the local emergency departments. Patient denies any fever or chills. He denies any chest pain or cough. Patient states that he does not have his psychiatric medications. He states that he cannot remember when he last went to a psychiatric facility but thinks it was recently. 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 Patient History Past Medical History: psych hx Social History: Reports: drug use Reviewed Nursing Documentation: PSxH: Agreed Nursing Documentation-PMH History Of Psychiatric Problem: Yes - schizophrenia Review of Systems All Other Systems: negative except mentioned in HPI Physical Exam Vital Signs Date Time Temp Pulse Resp B/P (MAP) Pulse Ox O2 Delivery O2 Flow Rate FiO2 03/24/20 09:34 98.1 89 19 133/78 (96) 99 Room Air Sp02 EP Interpretation: reviewed, normal General Appearance: no apparent distress, alert, GCS 15, non-toxic, other - poorly groomed Head: normocephalic, atraumatic Eyes: bilateral eye normal inspection, bilateral eye PERRL ENT: hearing grossly normal, normal pharynx, no angioedema, normal voice Neck: full range of motion, supple/symm/no masses Respiratory: chest non-tender, lungs clear, normal breath sounds, speaking full sentences Cardiovascular #1: regular rate, rhythm, no edema Gastrointestinal: normal bowel sounds, non tender, soft, non-distended, no guarding, no rebound Rectal: deferred Genitourinary: normal inspection, no CVA tenderness Musculoskeletal: back normal, normal range of motion, gait/station normal, non- tender Neurologic: alert, motor strength/tone normal, oriented x3, sensory intact, responsive, speech normal Psychiatric: other - Auditory hallucinations, suicidal ideation without plan Skin: no rash Lymphatic: no adenopathy Medical Decision Making Diagnostic Impression: Primary Impression: Suicidal ideation Additional Impressions: Malingering Methamphetamine abuse ER Course Patient's labs demonstrate positive UDS for methamphetamines. Patient is well- known to this emergency department as well as several other local emergency departments. Psychiatrist has been called. She will come evaluate the patient. Patient signed out to at 1400. Laboratory Tests Test 03/24/20 09:35 03/24/20 10:05 Urine Color Yellow Urine Appearance Clear Urine pH 6.5 (4.5-8.0) Urine Specific [place] 1.020 (1.005-1.035) Urine Protein 1+ (NEGATIVE) H Urine Glucose (UA) Negative (NEGATIVE) Urine Ketones 3+ (NEGATIVE) H Urine Blood Negative (NEGATIVE) Urine Nitrite Negative (NEGATIVE) Urine Bilirubin Negative (NEGATIVE) Urine Urobilinogen 1 MG/DL (0.0-1.0) H Urine Leukocyte Esterase 1+ (NEGATIVE) H Urine RBC 0-2 /HPF (0 - 0) H Urine WBC 10-15 /HPF (0 - 0) H Urine Squamous Epithelial Cells Occasional /LPF Urine Bacteria Occasional /HPF (NONE) Urine Mucus Few /LPF (NONE/OCC) H Urine Opiates Screen Negative (NEGATIVE) Urine Barbiturates Screen Negative (NEGATIVE) Phencyclidine (PCP) Screen Negative (NEGATIVE) Urine Amphetamines Screen Positive (NEGATIVE) H Urine Benzodiazepines Screen Negative (NEGATIVE) Urine Cocaine Screen Negative (NEGATIVE) Urine Marijuana (THC) Screen Negative (NEGATIVE) White Blood Count 8.7 K/UL (4.8-10.8) Red Blood Count 4.78 M/UL (4.70-6.10) Hemoglobin 14.4 G/DL (14.2-18.0) Hematocrit 39.5 % (42.0-52.0) L Mean Corpuscular Volume 83 FL (80-99) Mean Corpuscular Hemoglobin 30.0 PG (27.0-31.0) Mean Corpuscular Hemoglobin Concent 36.3 G/DL (32.0-36.0) H Red Cell Distribution Width 11.4 % (11.6-14.8) L Platelet Count 230 K/UL (150-450) Mean Platelet Volume 6.8 FL (6.5-10.1) Neutrophils (%) (Auto) 51.5 % (45.0-75.0) Lymphocytes (%) (Auto) 38.5 % (20.0-45.0) Monocytes (%) (Auto) 6.0 % (1.0-10.0) Eosinophils (%) (Auto) 2.5 % (0.0-3.0) Basophils (%) (Auto) 1.5 % (0.0-2.0) Sodium Level 140 MMOL/L (136-145) Potassium Level 3.5 MMOL/L (3.5-5.1) Chloride Level 101 MMOL/L (98-107) Carbon Dioxide Level 30 MMOL/L (21-32) Anion Gap 9 mmol/L (5-15) Blood Urea Nitrogen 21 mg/dL (7-18) H Creatinine 1.0 MG/DL (0.55-1.30) Estimated Glomerular Filtration Rate > 60 mL/min (>60) Glucose Level 109 MG/DL (74-106) H Calcium Level 9.1 MG/DL (8.5-10.1) Magnesium Level 2.1 MG/DL (1.8-2.4) Total Bilirubin 1.3 MG/DL (0.2-1.0) H Direct Bilirubin 0.2 MG/DL (0.0-0.3) Aspartate Amino Transferase (AST) 30 U/L (15-37) Alanine Aminotransferase (ALT) 70 U/L (12-78) Alkaline Phosphatase 73 U/L (46-116) Total Protein 8.0 G/DL (6.4-8.2) Albumin 3.9 G/DL (3.4-5.0) Globulin 4.1 g/dL Albumin/Globulin Ratio 1.0 (1.0-2.7) Salicylates Level 1.1 ug/mL (2.8-20) L Acetaminophen Level < 2 MCG/ML (10-30) L Serum Alcohol < 3 mg/dL Last Vital Signs Date Time Temp Pulse Resp B/P (MAP) Pulse Ox O2 Delivery O2 Flow Rate FiO2 03/24/20 09:34 98.1 89 19 133/78 (96) 99 Room Air Signed Out To: Nara Rendon M.D. March 24, 2020 09:42
[2020-03-24 09:55] LABS: APPEARANCE,URINE CLEAR; BILIRUBIN, URINE NEGATIVE (NEGATIVE); GLUCOSE, URINE (UA) NEGATIVE (NEGATIVE); KETONES,URINE 3+ (NEGATIVE); LEUKOCYTE ESTERASE ,URINE 1+ (NEGATIVE); NITRITE,URINE NEGATIVE (NEGATIVE); PH,URINE 6.5 (4.5-8.0); PROTEIN,URINE 1+ (NEGATIVE); UROBILINOGEN,URINE 1 MG/DL (0.0-1.0)
[2020-03-24 09:56] LABS: COLOR,URINE YELLOW
[2020-03-24 10:11] VITALS: BP 133/78
[2020-03-24 10:34] LABS: BASOPHILS % (AUTO) 1.5 % (0.0-2.0); EOSINOPHILS % (AUTO) 2.5 % (0.0-3.0); HEMATOCRIT 39.5 % (42.0-52.0); HEMOGLOBIN 14.4 G/DL (14.2-18.0); LYMPHOCYTES % (AUTO) 38.5 % (20.0-45.0); MEAN CORPUSCULAR VOLUME 83 FL (80-99); NEUTROPHILS % (AUTO) 51.5 % (45.0-75.0); PLATELET COUNT 230 K/UL (150-450); RED BLOOD COUNT 4.78 M/UL (4.70-6.10); RED CELL DISTRIBUTION WIDTH 11.4 % (11.6-14.8); WHITE BLOOD COUNT 8.7 K/UL (4.8-10.8)
[2020-03-24 10:39] LABS: ANION GAP 9 mmol/L (5-15); BLOOD UREA NITROGEN 21 mg/dL (7-18); CALCIUM 9.1 MG/DL (8.5-10.1); CARBON DIOXIDE 30 MMOL/L (21-32); CHLORIDE 101 MMOL/L (98-107); POTASSIUM 3.5 MMOL/L (3.5-5.1); SODIUM 140 MMOL/L (136-145)
[2020-03-24 10:50] LABS: ALANINE AMINOTRANSFERASE 70 U/L (12-78); ALBUMIN 3.9 G/DL (3.4-5.0); ALKALINE PHOSPHATASE 73 U/L (46-116); ASPARTATE AMINO TRANSFERASE 30 U/L (15-37); BILIRUBIN,TOTAL 1.3 MG/DL (0.2-1.0)
[2020-03-24 11:50] LABS: BILIRUBIN,DIRECT 0.2 MG/DL (0.0-0.3)
[2020-03-24 12:07] VITALS: BP 129/80
[2020-03-24 14:05] VITALS: BP 132/79
[2020-03-24 16:00] VITALS: BP 127/78
[2020-03-24] MEDS ORDERED: Haloperidol Decanoate (Long Acting) 50mg Inj IM ONE (17:45)
[2020-03-24 18:15] VITALS: BP 127/78
--- NOTE | 2020-03-25 06:30 | Consultation ---
DATE OF CONSULTATION: 03/24/2020 HISTORY OF PRESENT ILLNESS: The patient is a 25-year-old male with a history of schizophrenia and crystal meth use who has been admitted to the hospital for 5150. The patient was currently severely psychotic. He stated that he never told early that he was suicidal. In the emergency room, he received Zyprexa. Upon evaluation, the patient was responding to internal stimuli. He denied any suicidal or homicidal ideation. He did not appear to be anxious nor agitated. He was cooperative and was preoccupied. The patient has been eating and drinking adequately. He meth in the morning. PAST PSYCHIATRIC HISTORY: schizophrenia . He was unable to recall any of his psychotropic medications. PAST MEDICAL HISTORY: None. ALLERGIES: No known drug allergies. SUBSTANCE USE HISTORY: Significant for crystal meth. MENTAL STATUS EXAMINATION: The patient is alert and oriented times self, place, date, and situation. Mood is neutral. Affect is . He was appropriately. Thought process was concrete. Thought content, positive for auditory hallucinations and negative for suicidal or homicidal ideations. Cognition is intact. Insight and judgment limited. ASSESSMENT: [place] I Schizophrenia. [place] II Deferred. [place] III None. [place] IV Homelessness. [place] V 50. PLAN: 1. The patient will receive the Haldol Decanoate 100 mg IM monthly. 2. The patient is not meeting 5150 hold. 3. We will lift the hold. The patient will be discharged with followup plan with a psychiatrist. He will be also given a referral for . Antwan Colin M.D. DR: RACHEL JOB#: [id number] CC: JUAN
== END 2020-03-24 17:35 | disposition home or self-care (01) ==
LOC: EMR 09:40
DX: R45.851 Suicidal ideations (principal); Z76.5 Malingerer [conscious simulation]; F15.10 Other stimulant abuse, uncomplicated; F20.9 Schizophrenia, unspecified; Z88.2 Allergy status to sulfonamides
CPT/HCPCS: 36415; 80053; 80307; 81003; 82248; 83735; 85025; 87086; 96372; G0480; G0481; J1631; Z7502; 99284

== ENCOUNTER 2020-05-29 19:23 | Emergency (ER) | payer OTHER ==
[~2020-05-29] VITALS: Ht 180.3 cm; Wt 72.6 kg
--- NOTE | 2020-05-29 19:35 | NUR ---
ED Nurse Note: Recieved report from bonny nurse to resume care, pt in room currently speaking with MD and PD at bedside, pt is being placed on 5150 hold for danger to self and others due to severe paranoia, pt is constantly stating "i dont feel safe, they are trying to kill me, please help me!", pt denies homicidal or suicidal ideations and possibly has hallucinations due to speaking to himself, pt is cooperative and pleasant with staff, pt admits to not taking meds but unaware of how long, pt is currently poor historian, informed by MD no orders given for testing and pt spoke with psych physician, waiting for pt to be placed, will resume care as ordered and closely monitor for any acute changes or distress.
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
[2020-05-29] MEDS ORDERED: SEROQUEL50 MG ORAL (20:40)
[2020-05-29 20:50] VITALS: BP 142/96
--- NOTE | 2020-05-29 20:50 | NUR ---
ER DISCHARGE NOTE: Patient is cleared to be discharged per ERMD, pt is aox4, on room air, with stable vital signs. pt was given dc and prescription instructions, pt id band removed without complications. pt is able to ambulate . pt took all belongings.
--- NOTE | 2020-05-29 22:45 | Consultation ---
DATE OF CONSULTATION: 05/29/2020 HISTORY OF PRESENT ILLNESS: This is a 25-year-old black male with a history of methamphetamine use and history of psychotic disorder, who is well known to this physician from previous ER admission about a month ago. The patient allegedly went to the [employer], to the [employer] workers that he is going to kill himself by overdosing. Per the military police officer, the patient told them that he is going to jump off a wall. The patient stated that he used methamphetamine this morning. He has been to ER or [place] about a month ago with similar scenario. The patient also states that he is hearing voices. He has not been seeing a psychiatrist nor taking his medication. He states he continues to use methamphetamine. PAST PSYCHIATRIC HISTORY: As above. PAST MEDICAL HISTORY: None. ALLERGIES: No known drug allergies. SUBSTANCE ABUSE HISTORY: Crystal meth abuse versus dependence. MENTAL STATUS EXAMINATION: Alert and oriented to times, self, place, and situation. Mood is dysphoric. Affect is blunted. Congruent with mood. Thought process is concrete. Thought content, no suicidal or homicidal ideation. Cognition is intact. Insight and judgment is poor. ASSESSMENT: AXIS I: Methamphetamine dependence versus abuse. AXIS II: Deferred. AXIS III: As above. AXIS IV: Low to moderate. AXIS V: 50. PLAN: 1. The patient will be cleared from psychiatric point of view. He should be discharged when medically cleared. 2. Discontinue the 5150. 3. Provide the patient with reality orientation and supportive therapy. Antwan Colin M.D. DR: Gena JOB#: [id number] CC: JUAN
== END 2020-05-29 20:50 | disposition home or self-care (01) ==
LOC: EDBD 19:23 → EMR 19:49
DX: F15.10 Other stimulant abuse, uncomplicated (principal); F20.9 Schizophrenia, unspecified; Z88.2 Allergy status to sulfonamides
CPT/HCPCS: 99284

== ENCOUNTER 2020-06-30 05:05 | Emergency (ER) | payer OTHER ==
[~2020-06-30] VITALS: Ht 177.8 cm; Wt 68.0 kg
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
[2020-06-30 05:30] VITALS: BP 134/92
--- NOTE | 2020-06-30 05:30 | NUR ---
ER DISCHARGE NOTE: Patient is cleared to be discharged per ERMD, pt is aox4, on room air, with stable vital signs. pt was given dc instructions, pt was able to verbalize understanding, pt id band removed without complications. pt is able to ambulate with steady gait. pt took all belongings.
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
== END 2020-06-30 05:30 | disposition home or self-care (01) ==
LOC: EMR 05:30
DX: F91.9 Conduct disorder, unspecified (principal); F15.10 Other stimulant abuse, uncomplicated; Z88.2 Allergy status to sulfonamides
CPT/HCPCS: 99281

== ENCOUNTER 2020-08-06 22:22 | Emergency (ER) | payer OTHER ==
[~2020-08-06] VITALS: Ht 177.8 cm; Wt 68.0 kg
[2020-08-06 22:25] VITALS: BP 131/76
--- NOTE | 2020-08-06 22:25 | NUR ---
ED Nurse Note: walked in to ed c/o hearing voices onset today requesting to be evaluated. pt states he is not taking any medications at this time. vss, nad, aaox4, ambulatory
--- NOTE | 2020-08-06 22:55 | NUR ---
ED Nurse Note: Patient refused IM shot of Haldol. ERMD notified
[2020-08-06] MEDS ORDERED: Haloperidol 5mg/ml Inj IM ONE (23:00)
--- NOTE | 2020-08-06 23:00 | NUR ---
ED Nurse Note: pt left ama without signing. pt refused to receive medication ordered by ermd. no medical devices such as iv on the patient. pt ambulated out
--- NOTE | 2020-08-07 23:32 | Emergency Room Report ---
History of Present Illness General Chief Complaint: Behavioral Complaint Source: Patient Present Illness HPI 25-year-old male presents the ED for evaluation. History of psych. History of methamphetamine use. States he is hearing voices. Like to be evaluated. Denies SI or HI. States he is not taking medication at this time. No other aggravating relieving factors. Denies any other associated symptoms Allergies: Coded Allergies: SULFA (SULFONAMIDE ANTIBIOTICS) (Unverified Allergy, Unknown, 01/21/18) UNABLE TO ASSESS (Unverified , 09/08/18) Uncoded Allergies: SULFA (Allergy, Unknown, 12/30/17) COVID-19 Screening Contact w/high risk pt: No Recent Travel to affected area: No Experienced COVID-19 symptoms?: No COVID-19 Testing performed CLOTH PAINTER: No Patient History Past Medical History: none Past Surgical History: none Pertinent Family History: none Social History: Denies: smoking, alcohol use, drug use Immunizations: UTD Reviewed Nursing Documentation: PMH: Agreed; PSxH: Agreed Nursing Documentation-PMH Past Medical History: No Stated History Review of Systems All Other Systems: negative except mentioned in HPI Physical Exam Vital Signs Date Time Temp Pulse Resp B/P (MAP) Pulse Ox O2 Delivery O2 Flow Rate FiO2 08/06/20 22:24 98.4 87 20 132/79 (96) 98 Room Air 08/06/20 22:25 99 Sp02 EP Interpretation: reviewed, normal General Appearance: no apparent distress, alert, GCS 15, non-toxic Head: normocephalic, atraumatic Eyes: bilateral eye normal inspection, bilateral eye PERRL ENT: hearing grossly normal, normal pharynx, no angioedema, normal voice Neck: full range of motion, supple/symm/no masses Respiratory: chest non-tender, lungs clear, normal breath sounds, speaking full sentences Cardiovascular #1: regular rate, rhythm, no edema Cardiovascular #2: 2+ carotid (R), 2+ carotid (L), 2+ radial (R), 2+ radial (L), 2+ dorsalis pedis (R), 2+ dorsalis pedis (L) Gastrointestinal: normal bowel sounds, non tender, soft, non-distended, no guarding, no rebound Rectal: deferred Genitourinary: normal inspection, no CVA tenderness Musculoskeletal: back normal, normal range of motion, gait/station normal, non- tender Neurologic: alert, motor strength/tone normal, oriented x3, sensory intact, responsive, speech normal Psychiatric: no suicidal/homicidal ideation, anxious Reflexes: 3+ bicep (R), 3+ bicep (L), 3+ tricep (R), 3+ tricep (L), 3+ knee (R), 3+ knee (L) Skin: no rash Lymphatic: no adenopathy Medical Decision Making Diagnostic Impression: Primary Impression: Behavioral disorder ER Course Hospital Course 25-year-old male presents hearing voices. Differential diagnoses include: Psychosis, EtOH, drug abuse Clinical course patient placed chair. After initial history physical exam reveals male in no acute distress. Patient has multiple hospital IDs on his hands and wrist states somewhere from earlier today. Does not recall which hospital. Patient maintains good eye contact. I do not suspect SI or HI. I reviewed EMR and patient has multiple visits with substance abuse specifically methamphetamines. I do not believe patient is danger to self or others. I of fered to provide a Haldol injection and to reassess the patient. Patient initially agreed and then refused the medication and walked out of ED i. I feel this is a highly complex case requiring extensive working including EKG/Rhythm strip, Xray/CT/US, Blood/urine lab work, repeat exams while in ED, and administration of strong opiates/narcotics for pain control, admission to hospital or close patient follow up. Diagnosis - behavioral disorder patient eloped from ED Last Vital Signs Date Time Temp Pulse Resp B/P (MAP) Pulse Ox O2 Delivery O2 Flow Rate FiO2 08/06/20 22:25 87 20 Room Air 99 08/06/20 22:25 98.3 131/76 98 Status: improved Disposition: ELOPED Condition: Stable Referrals: [facility] ([facility]P) Savage Crum MD Aug 07, 2020 23:32
== END 2020-08-06 23:00 | disposition left against medical advice (07) ==
LOC: EMR 22:48
DX: F91.9 Conduct disorder, unspecified (principal); Z88.2 Allergy status to sulfonamides
CPT/HCPCS: 99281

== ENCOUNTER 2020-09-14 19:25 | Emergency (ER) | payer OTHER ==
[~2020-09-14] VITALS: Ht 177.8 cm; Wt 72.6 kg
--- NOTE | 2020-09-14 19:41 | Emergency Room Report ---
History of Present Illness General Chief Complaint: Behavioral Complaint Source: Patient, EMS Present Illness HPI Patient is a 25-year-old male well-known to EMS in our emergency room as well as other local emergency rooms past medical history of psychiatric disorder not compliant with medications and methamphetamine abuse who presents to the ER stating that he hears voices. He states that the voices tell him to hurt himself. Patient was apparently making threats to bystanders. EMS was called. Patient admits to taking crystal meth just prior to arrival. He denies any chest pain or shortness of breath. He denies any nausea or vomiting. He states that he was seen at [place] yesterday. 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 Patient History Reviewed Nursing Documentation: PMH: Agreed; PSxH: Agreed Nursing Documentation-PMH History Of Psychiatric Problem: Yes - sunstance abuse Review of Systems All Other Systems: negative except mentioned in HPI Physical Exam Vital Signs Date Time Temp Pulse Resp B/P (MAP) Pulse Ox O2 Delivery O2 Flow Rate FiO2 09/14/20 19:28 98.1 140 20 134/74 (94) 99 Room Air Sp02 EP Interpretation: reviewed, normal General Appearance: no apparent distress, other - Disheveled Head: normocephalic, atraumatic Eyes: bilateral eye normal inspection, bilateral eye PERRL ENT: hearing grossly normal, normal pharynx, no angioedema, normal voice Neck: full range of motion, supple/symm/no masses Respiratory: chest non-tender, lungs clear, normal breath sounds, speaking full sentences Cardiovascular #1: tachycardia Gastrointestinal: normal bowel sounds, non tender, soft, non-distended, no guarding, no rebound Rectal: deferred Genitourinary: normal inspection, no CVA tenderness Musculoskeletal: normal range of motion 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 Patient pending labs and reevaluation. Patient signed out to oncoming physician Dr. Aaron pending labs, reevaluation and final disposition. EKG Diagnostic Results Troponin ordered: No - order for tachycardia due to drug use EKG Time: 19:58 EP Interpretation: Nara Keen MD Rate: tachycardiac - 105 bpm Rhythm: other - Sinus tachycardia ST Segments: no acute changes ASA given to the pt in ED: No Rhythm Strip Diag. Results Rhythm Strip Time: 20:03 EP Interpretation: yes - Nara Keen MD Rate: 107 bpm Rhythm: no PVC's, no ectopy, other - sinus tachycardia Last Vital Signs Date Time Temp Pulse Resp B/P (MAP) Pulse Ox O2 Delivery O2 Flow Rate FiO2 09/14/20 19:28 98.1 140 20 134/74 (94) 99 Room Air Signed Out To: Dr. Aaron at 2100 Additional Instructions: Please note that this report is being documented using Dials technology. This can lead to erroneous entry secondary to incorrect interpretation by the dictating instrument. Nara Keen M.D. Sep 14, 2020 19:41
[2020-09-14] MEDS ORDERED: LORazepam Inj 2mg/ml 1ml IV ONE (19:45)
[2020-09-14 20:00] VITALS: BP 134/74
--- NOTE | 2020-09-14 20:03 | NUR ---
Nurse Note: Blood and urine sent to lab Addendum: 09/14/20 at 2004 by [email or web address] LEANDRO at [facility]
--- NOTE | 2020-09-14 20:19 | NUR ---
Nurse Note: Pt brought in by ambulance 826 from [facility] c/o using meth and threatening others. Per EMS, pt was walking around [facility] and was flagged by bystanders. Pt admitted on using meth. LT AC 18 gauge est, blood and urine sent. Fluids and meds adminsitered. [employer] at bedside. Pt placed on athletic monitor; pt resting in bed. Pt arrived with an old arm band from [facility] and arrived with an IV. Pt state he has been using the old IV site; pt did not know when it was placed.
[2020-09-14 20:37] LABS: APPEARANCE,URINE CLEAR; BILIRUBIN, URINE NEGATIVE (NEGATIVE); COLOR,URINE PALE YELLOW; GLUCOSE, URINE (UA) NEGATIVE (NEGATIVE); KETONES,URINE NEGATIVE (NEGATIVE); LEUKOCYTE ESTERASE ,URINE 1+ (NEGATIVE); NITRITE,URINE NEGATIVE (NEGATIVE); PH,URINE 7 (4.5-8.0); PROTEIN,URINE NEGATIVE (NEGATIVE); UROBILINOGEN,URINE NORMAL MG/DL (0.0-1.0)
--- NOTE | 2020-09-14 21:00 | NUR ---
ED Nurse Note: pt placed in white gown. all belongings removed from patient premise.
[2020-09-14 21:14] LABS: BASOPHILS % (AUTO) 2.3 % (0.0-2.0); EOSINOPHILS % (AUTO) 2.2 % (0.0-3.0); HEMATOCRIT 42.3 % (42.0-52.0); HEMOGLOBIN 14.5 G/DL (14.2-18.0); LYMPHOCYTES % (AUTO) 20.4 % (20.0-45.0); MEAN CORPUSCULAR VOLUME 85 FL (80-99); MONOCYTES % (AUTO) 8.9 % (1.0-10.0); NEUTROPHILS % (AUTO) 66.2 % (45.0-75.0); PLATELET COUNT 296 K/UL (150-450); RED BLOOD COUNT 4.96 M/UL (4.70-6.10); RED CELL DISTRIBUTION WIDTH 13.7 % (11.6-14.8); WHITE BLOOD COUNT 11.9 K/UL (4.8-10.8)
[2020-09-14 21:28] LABS: ANION GAP 10 mmol/L (5-15); BLOOD UREA NITROGEN 16 mg/dL (7-18); CALCIUM 9.5 MG/DL (8.5-10.1); CARBON DIOXIDE 26 MMOL/L (21-32); CHLORIDE 101 MMOL/L (98-107); POTASSIUM 3.6 MMOL/L (3.5-5.1); SODIUM 137 MMOL/L (136-145)
[2020-09-14 21:32] LABS: ALANINE AMINOTRANSFERASE 111 U/L (12-78); ALBUMIN 4.2 G/DL (3.4-5.0); ALBUMIN/GLOBULIN RATIO 0.9 (1.0-2.7); ALKALINE PHOSPHATASE 96 U/L (46-116); ASPARTATE AMINO TRANSFERASE 67 U/L (15-37); BILIRUBIN,TOTAL 0.8 MG/DL (0.2-1.0)
[2020-09-14] MEDS ORDERED: cefTRIAXone 1 GM in NS 55 ML IVPB ONE (22:30)
--- NOTE | 2020-09-14 22:46 | NUR ---
ED Nurse Note: belongings inventory done. all belongings placed in locker #1.
[2020-09-14 22:47] VITALS: BP 129/80
--- NOTE | 2020-09-14 22:50 | NUR ---
ED Nurse Note: Recieved report from NOEMÍ Feliciano to resume care of pt, pt placed in treatment room from bed 2, pt is here on 5150 hold for suicidal ideations, pt is awake, alert and oriented x 4, pt is anxious and restless, pacing in room and going to bathroom very often, pt states he is hearing voices telling him to "kill himself", pt has no real plan and positive for substance abuse, will resume care as ordered on suicidal precautions, no sitter available, will continue to monitor.
--- NOTE | 2020-09-14 22:53 | NUR ---
ED Nurse Note: pt moved to tx 1. gave report to Kemi DOWD.
--- NOTE | 2020-09-14 22:55 | NUR ---
ED Nurse Note: Pt noted with IV line, 18 gauge in left AC, states to remove, line d/c without complicatons.
[2020-09-14 23:00] VITALS: BP 140/88
--- NOTE | 2020-09-15 02:00 | NUR ---
ED Nurse Note: No acute changes or distress noted, pt remains awake in room, also continues to state he is suicidal and hearing voices, pt on suicidal precautions, will continue to closely monitor.
[2020-09-15 02:10] VITALS: BP 136/71
--- NOTE | 2020-09-15 04:00 | NUR ---
ED Nurse Note: Pt resting in bed quietly with eyes closed, appears to be sleeping, no sob or labored breathing noted, remains on suicidal precautions, no attempts made or changes in condition, will continue to closely monitor, pt waiting for psych placement.
--- NOTE | 2020-09-15 05:10 | NUR ---
ED Nurse Note: Pt awakened in room, ambulated to bathroom, no changes in condition, pt states he still hears voices telling him to kill himself and remains suicidal on precautions, pt breakfast ordered, will continue to monitor.
--- NOTE | 2020-09-15 06:35 | NUR ---
ED Nurse Note: Pt in bed awake and alert, pt is more calm and appears less agitated, ambulated to bathroom, tolerated well, pt sitting on bed eating breakfast tray, pt remains on suicidal precautions and continues to state he feels suicidal, denies homicidal ideations and does have auditory hallucinations, s/w liason at [facility], [place], pt will be accepted at their facility, retrieved info, waiting for ambulance info and eta for report. Pt informed.
[2020-09-15 07:36] VITALS: BP 127/80
[2020-09-15 08:15] VITALS: BP 130/80
--- NOTE | 2020-09-15 08:15 | NUR ---
ED Nurse Note: [facility] @ bedside. Report given. Pt A+OX4, speaking in complete sentences.
--- NOTE | 2020-09-15 08:20 | NUR ---
patient left er to psych facility [facility] all belonging send with patient
== END 2020-09-15 08:20 ==
LOC: EDBD 19:25 → EMR 20:11
DX: F91.9 Conduct disorder, unspecified (principal); Z76.5 Malingerer [conscious simulation]; F15.10 Other stimulant abuse, uncomplicated; Z88.2 Allergy status to sulfonamides
CPT/HCPCS: 36415; 80053; 80307; 81003; 83735; 85025; 87086; 93005; 96361; 96365; 96375; G0480; G0481; J0696; J7030; U0002; Z7502; 99285

== ENCOUNTER 2020-12-24 22:58 | Emergency (ER) | payer OTHER ==
[~2020-12-24] VITALS: Ht 177.8 cm; Wt 68.0 kg
[2020-12-24] MEDS ORDERED: Haloperidol 5mg/ml Inj IM ONE (23:15)
--- NOTE | 2020-12-24 23:32 | Emergency Room Report ---
History of Present Illness General Chief Complaint: Behavioral Complaint Source: Patient Present Illness HPI 25-year-old male with history of schizophrenia and methamphetamine abuse here with auditory hallucinations. Patient says that he has been abusing crystal meth over the past several days. He says that he has been hearing voices that have been telling him to hurt himself. He was nonspecific with the details. He does have a history of suicide attempts by cutting his wrists. At this time aside from the auditory hallucinations he denies any suicidal ideation or homicidal ideation. 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 COVID-19 Screening: Negative COVID-19 COVID-19 Testing Source: unknown Nursing Documentation-[facility] Past Medical History: No History, Except For History Of Psychiatric Problem: Yes - schizophrenia Review of Systems All Other Systems: negative except mentioned in HPI Physical Exam Vital Signs Date Time Temp Pulse Resp B/P (MAP) Pulse Ox O2 Delivery O2 Flow Rate FiO2 12/24/20 23:03 98.1 107 18 140/82 (101) 96 Room Air Sp02 EP Interpretation: reviewed, normal General Appearance: no apparent distress, alert, non-toxic Head: normocephalic, atraumatic Eyes: bilateral eye normal inspection, bilateral eye PERRL ENT: hearing grossly normal, normal pharynx, no angioedema, normal voice Neck: full range of motion, supple/symm/no masses Respiratory: chest non-tender, lungs clear, normal breath sounds, speaking full sentences Cardiovascular #1: regular rate, rhythm, no edema Cardiovascular #2: 2+ carotid (R), 2+ carotid (L), 2+ radial (R), 2+ radial (L), 2+ dorsalis pedis (R), 2+ dorsalis pedis (L) Gastrointestinal: normal bowel sounds, non tender, soft, non-distended, no guarding, no rebound Rectal: deferred Genitourinary: normal inspection, no CVA tenderness Musculoskeletal: back normal, normal range of motion, gait/station normal, non- tender Neurologic: alert, motor strength/tone normal, oriented x3, sensory intact, responsive, speech normal Psychiatric: judgement/insight normal, memory normal, no suicidal/homicidal ideation, other - Odd affect Lymphatic: no adenopathy Medical Decision Making Homeless Attestation Patient has been medically screened and is stable for outpatient follow up Diagnostic Impression: Primary Impression: Methamphetamine abuse ER Course Laboratory Tests Test 12/24/20 23:01 White Blood Count 8.0 K/UL (4.8-10.8) Red Blood Count 5.48 M/UL (4.70-6.10) Hemoglobin 15.6 G/DL (14.2-18.0) Hematocrit 45.8 % (42.0-52.0) Mean Corpuscular Volume 84 FL (80-99) Mean Corpuscular Hemoglobin 28.4 PG (27.0-31.0) Mean Corpuscular Hemoglobin Concent 34.0 G/DL (32.0-36.0) Red Cell Distribution Width 13.6 % (11.6-14.8) Platelet Count 313 K/UL (150-450) Mean Platelet Volume 7.3 FL (6.5-10.1) Neutrophils (%) (Auto) 48.7 % (45.0-75.0) Lymphocytes (%) (Auto) 37.2 % (20.0-45.0) Monocytes (%) (Auto) 9.0 % (1.0-10.0) Eosinophils (%) (Auto) 3.0 % (0.0-3.0) Basophils (%) (Auto) 2.1 % (0.0-2.0) H Sodium Level Pending Potassium Level Pending Chloride Level Pending Carbon Dioxide Level Pending Blood Urea Nitrogen Pending Creatinine Pending Estimated Glomerular Filtration Rate Pending Glucose Level Pending Calcium Level Pending Total Bilirubin Pending Aspartate Amino Transferase (AST) Pending Alanine Aminotransferase (ALT) Pending Alkaline Phosphatase Pending Total Protein Pending Albumin Pending Globulin Pending Salicylates Level Pending Urine Opiates Screen Pending Acetaminophen Level Pending Urine Barbiturates Screen Pending Phencyclidine (PCP) Screen Pending Urine Amphetamines Screen Pending Urine Benzodiazepines Screen Pending Urine Cocaine Screen Pending Urine Marijuana (THC) Screen Pending Serum Alcohol Pending 25-year-old male here with auditory hallucinations after smoking meth. Patient was hemodynamically stable and neurovascular intact in the emergency department. He was observed and was clinically sober. He was given a dose of intramuscular Haldol. Soon after he was saying that he is no longer having hallucinations and denied any homicidal or suicidal ideation. He was given mental health resources. Told to refrain from illicit drug use. Given mental resources to follow-up with and was told to return if he is feeling suicidal. He expressed understanding and was discharged. Last Vital Signs Date Time Temp Pulse Resp B/P (MAP) Pulse Ox O2 Delivery O2 Flow Rate FiO2 12/24/20 23:03 98.1 107 18 140/82 (101) 96 Room Air Dago [place] M.D. Dec 24, 2020 23:32
[2020-12-24 23:43] LABS: BASOPHILS % (AUTO) 2.1 % (0.0-2.0); HEMATOCRIT 45.8 % (42.0-52.0); HEMOGLOBIN 15.6 G/DL (14.2-18.0); LYMPHOCYTES % (AUTO) 37.2 % (20.0-45.0); MEAN CORPUSCULAR VOLUME 84 FL (80-99); NEUTROPHILS % (AUTO) 48.7 % (45.0-75.0); PLATELET COUNT 313 K/UL (150-450); RED BLOOD COUNT 5.48 M/UL (4.70-6.10); RED CELL DISTRIBUTION WIDTH 13.6 % (11.6-14.8)
[2020-12-24 23:49] LABS: ANION GAP 10 mmol/L (5-15); BLOOD UREA NITROGEN 16 mg/dL (7-18); CALCIUM 9.8 MG/DL (8.5-10.1); CARBON DIOXIDE 29 MMOL/L (21-32); CHLORIDE 101 MMOL/L (98-107); CREATININE 1.1 MG/DL (0.55-1.30); POTASSIUM 3.5 MMOL/L (3.5-5.1); SODIUM 139 MMOL/L (136-145)
[2020-12-24 23:51] VITALS: BP 140/82
[2020-12-24 23:59] LABS: ALANINE AMINOTRANSFERASE 66 U/L (12-78); ALBUMIN 4.3 G/DL (3.4-5.0); ALBUMIN/GLOBULIN RATIO 0.9 (1.0-2.7); ALKALINE PHOSPHATASE 88 U/L (46-116); ASPARTATE AMINO TRANSFERASE 43 U/L (15-37); BILIRUBIN,TOTAL 1.2 MG/DL (0.2-1.0)
[2020-12-25 00:07] LABS: BILIRUBIN,DIRECT 0.3 MG/DL (0.0-0.3)
[2020-12-25 00:08] VITALS: BP 139/81
== END 2020-12-25 00:11 | disposition other institution (70) ==
LOC: EDBD 22:58 → EMR 23:38
DX: F15.10 Other stimulant abuse, uncomplicated (principal); Z88.2 Allergy status to sulfonamides; F20.9 Schizophrenia, unspecified; Z91.5 Personal history of self-harm
CPT/HCPCS: 36415; 80053; 80307; 82248; 85025; 96372; G0480; G0481; J1630; Z7502; 99284